=== PATIENT | female | born 1980 | race Caucasian/White ===

== ENCOUNTER 2017-01-24 18:17 | Emergency (ER) | payer SELFPAY ==
[~2017-01-24] VITALS: Ht 170.2 cm; Wt 54.5 kg
[~2017-01-24 18:17] MED LIST: CLINDAMYCIN300 MG PO; DOXYCYCLINE 10100 MG PO; NO HOME MEDICATIONS; ULTRAM 50MG TAB50 MG PO
[2017-01-24 18:24] VITALS: TEMP 98
[2017-01-24 19:01] LABS: BASO # 0.1 (0.0-0.2); BASO % 0.7 % (0.0-2.0); EOS # 0.2 (0.0-0.7); EOS % 0.9 % (0-4.0); GRAN # 13.6 (1.4-6.5); GRAN % 76.2 % (42.2-75.2); HEMATOCRIT 39.5 % (37.0-47.0); LYMPH # 2.8 (1.2-3.4); LYMPH % 15.8 % (20.0-51.0); MEAN CELL VOLUME 86 fl (80.0-100.0); MEAN CORPUSCULAR HEMOGLOBIN 28 pg (27.0-31.0); MEAN CORPUSCULAR HGB CONC 33 g/dl (33.0-37.0); MONO # 1.1 (0.1-0.6); PLATELET COUNT 633 K/mm3 (130-400); RED BLOOD COUNT 4.59 M/mm3 (4.10-5.30); REDCELL DISTRIBUTION WIDTH-CV 14.1 % (11.5-14.5); WHITE BLOOD COUNT 17.9 K/mm3 (4.8-10.8)
[2017-01-24 19:10] LABS: ADJUSTED CALCIUM 9.5 mg/dL (8.4-10.2); ALBUMIN 3.8 gm/dL (3.5-5.0); BILIRUBIN,TOTAL 0.7 mg/dL (0.0-1.0); C-REACTIVE PROTEIN 1.3 mg/dL (0.0-0.9); CALCIUM 9.3 mg/dL (8.4-10.2); CREATININE, serum 0.54 mg/dL (0.52-1.25); POTASSIUM 3.7 mmol/L (3.4-5.0); TOTAL PROTEIN 7.6 gm/dL (6.4-8.2)
[2017-01-24] MEDS ORDERED: ZOFRAN ODT4 MG PO (20:21)
[2017-01-24] MEDS ORDERED: DOXYCYCLINE 10100 MG PO (20:21)
[2017-01-24] MEDS ORDERED: NORCO 325 MG-51 TAB PO (20:21)
[2017-01-24 21:02] VITALS: BP 132/70; PULSE 83
== END 2017-01-24 21:06 | disposition home or self-care (01) ==
LOC: COL.ER 18:17
PROVIDERS: Nurse Practitioner
DX: J34.0 Abscess, furuncle and carbuncle of nose (principal); Z86.14 Personal history of Methicillin resistant Staphylococcus aureus infection; I34.1 Nonrheumatic mitral (valve) prolapse; F17.210 Nicotine dependence, cigarettes, uncomplicated; Z88.0 Allergy status to penicillin; R11.2 Nausea with vomiting, unspecified
CPT/HCPCS: J2270; J2405; J7030